=== PATIENT | male | born 1995 | race African-American/Black ===

== ENCOUNTER 2019-02-07 21:43 | Emergency (ER) | payer OTHER ==
[~2019-02-07] VITALS: Ht 198.1 cm; Wt 131.0 kg
[2019-02-07 22:31] VITALS: BP 140/74
== END 2019-02-07 22:59 | disposition home or self-care (01) ==
LOC: ER 21:43
DX: H10.9 Unspecified conjunctivitis (principal); R03.0 Elevated blood-pressure reading, without diagnosis of hypertension
CPT/HCPCS: 99283